=== PATIENT | female | born 2000 | race African-American/Black ===

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

== ENCOUNTER 2019-02-11 16:23 | Emergency (ER) | payer SELFPAY ==
[~2019-02-11] VITALS: Ht 157.5 cm; Wt 85.0 kg
[2019-02-11 16:31] VITALS: BP 119/76
--- NOTE | 2019-02-11 16:34 | NUR ---
TERRY PEARSON. TO LOBBY, MARIANGEL.
--- NOTE | 2019-02-11 17:28 | NUR ---
PT C/O ECZEMA BREAKOUT IN GROIN AREA AFTER USING TAMPON FOR 1ST TIME ON 01/27/19. AFTER BREAKOUT PT C/O WHITE VAGINA DISCHARGE W/ NO ODOR BEGINNING ON 01/29/19. PT USED ECZEMA CREAM AND IT SUBSIDED. PT THEN SHAVED GROIN, ABD, AND INNER THIGHS AND HAD ANOTHER BREAKOUT. PT DENIES PAIN AND ITCHING. RESPIRATIONS EVEN AND UNLABORED. ABD SOFT, ROUND, NON TENDER. PT IN BED ON PHONE, NO FURTHER COMPLAINTS. MEDHX: ECZEMA ALLERGIES: DENIES
--- NOTE | 2019-02-11 17:40 | NUR ---
ERMD AT BEDSIDE
[2019-02-11 18:05] VITALS: BP 119/76
--- NOTE | 2019-02-11 18:05 | NUR ---
Patient discharged with v/s stable. Written and verbal after care instructions given and explained. Patient alert, oriented and verbalized understanding of instructions. with steady gait. All questions addressed prior to discharge. ID band removed. Patient advised to follow up with PMD. Rx of FLUCONAZOLE, HYDROCORTISONE, KEFLEX given. Patient educated on indication of medication including possible reaction and side effects. Opportunity to ask questions provided and answered.
== END 2019-02-11 18:05 | disposition home or self-care (01) ==
LOC: MED 16:23
DX: L73.9 Follicular disorder, unspecified (principal); B37.3 Candidiasis of vulva and vagina; J45.909 Unspecified asthma, uncomplicated; Z90.89 Acquired absence of other organs; Z87.2 Personal history of diseases of the skin and subcutaneous tissue
CPT/HCPCS: 81002; 81025; 99283

== ENCOUNTER 2019-03-11 23:10 | Emergency (ER) | payer MEDICAID ==
[~2019-03-11] VITALS: Ht 157.5 cm; Wt 85.3 kg
[2019-03-11 23:20] VITALS: BP 138/95
--- NOTE | 2019-03-11 23:24 | NUR ---
PT TRIAGED, SENT BACK TO LOBBY AWAITING FOR BED
--- NOTE | 2019-03-11 23:52 | NUR ---
PT TAKEN TO BED 12
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
[2019-03-12] MEDS ORDERED: methylPREDNISolone SS 125 MG/2 ML VIAL IVP ONE (00:35)
[2019-03-12] MEDS ORDERED: FAMOTIDINE 20 MG/2 ML VIAL IVP ONE (00:35)
[2019-03-12] MEDS ORDERED: NACL 0.9% 1,000 ML IV ONE (00:35)
[2019-03-12 01:48] VITALS: BP 138/95
--- NOTE | 2019-03-12 01:49 | NUR ---
Patient discharged with v/s stable. Written and verbal after care instructions given and explained. Patient alert, oriented and verbalized understanding of instructions. Ambulatory with steady gait. All questions addressed prior to discharge. ID band removed. Patient advised to follow up with PMD. Rx of EPIPEN, PREDNISONE, PEPCID given. Patient educated on indication of medication including possible reaction and side effects. Opportunity to ask questions provided and answered.
--- NOTE | 2019-03-12 11:05 | NUR ---
Late entry. Confirmed with RN that 1000ml 0.9 NS IV completed at 1819
== END 2019-03-12 01:49 | disposition home or self-care (01) ==
LOC: MED 23:10
DX: T78.40XA Allergy, unspecified, initial encounter (principal); J45.909 Unspecified asthma, uncomplicated; Z98.890 Other specified postprocedural states; Z91.018 Allergy to other foods; Z91.010 Allergy to peanuts; Z91.048 Other nonmedicinal substance allergy status; X58.XXXA Exposure to other specified factors, initial encounter
CPT/HCPCS: 96374; 96375; 99283; J2930; J3490; J7030

== ENCOUNTER 2019-03-13 16:57 | Emergency (ER) | payer MEDICAID ==
[~2019-03-13] VITALS: Ht 157.5 cm; Wt 85.0 kg
[2019-03-13 17:01] VITALS: BP 123/50
[2019-03-13] MEDS ORDERED: DEXAMETHASONE 10 MG/ML VIAL IM ONE (17:25)
[2019-03-13] MEDS ORDERED: diphenhydrAMINE 50 MG/ML VIAL IM ONE (17:25)
[2019-03-13] MEDS ORDERED: ALBUTEROL 0.083% 2.5 MG/3 ML NEBU INH ONE (17:40)
[2019-03-13 18:35] VITALS: BP 119/71
== END 2019-03-13 18:36 | disposition home or self-care (01) ==
LOC: MED 16:57
DX: L50.0 Allergic urticaria (principal); J45.909 Unspecified asthma, uncomplicated; Z90.49 Acquired absence of other specified parts of digestive tract; Z91.018 Allergy to other foods
CPT/HCPCS: 94640; 96372; 99283; J1100; J1200; J7613

== ENCOUNTER 2019-05-20 16:25 | Emergency (ER) | payer MEDICAID, OTHER ==
[~2019-05-20] VITALS: Ht 157.5 cm; Wt 81.6 kg
[2019-05-20 16:28] VITALS: BP 126/70
--- NOTE | 2019-05-20 16:35 | NUR ---
PT AMBULATED TO ER BED 02
--- NOTE | 2019-05-20 16:40 | NUR ---
C/O NON-PRODUCTIVE COUGH, FEVER, SORE THROAT 8/10 X YESTERDAY. PT AFEBRILE AT THIS TIME. LUNGS CLEAR BILTERALLY. RR EVEN AND UNLABORED. REDNESS NOTED TO BACK OF PTS THROAT. PT ALERT AND AWAKE. VS STABLE. AMBULATORY WITH STEADY GAIT. MED HX: ECZEMA
[2019-05-20 16:50] VITALS: BP 126/70
--- NOTE | 2019-05-20 16:50 | NUR ---
Patient discharged with v/s stable. Written and verbal after care instructions given and explained REGARDING UPPER RESP INFECTION. Patient alert, oriented and verbalized understanding of instructions. Ambulatory with steady gait. All questions addressed prior to discharge. ID band removed. Patient advised to follow up with PMD. Rx of ROBITUSSIN FOR COUGH, AND IBUPROFEN AND TYLENOL given. INSTRUCTED TO ALTERNATE BETWEEN THE TWO FOR FEVER. Patient educated on indication of medication including possible reaction and side effects. Opportunity to ask questions provided and answered.
== END 2019-05-20 16:50 | disposition home or self-care (01) ==
LOC: MED 16:25
DX: J06.9 Acute upper respiratory infection, unspecified (principal); J45.909 Unspecified asthma, uncomplicated; Z91.018 Allergy to other foods; Z91.048 Other nonmedicinal substance allergy status; Z91.010 Allergy to peanuts
CPT/HCPCS: 99282

== ENCOUNTER 2020-01-26 20:27 | Emergency (ER) | payer OTHER ==
[~2020-01-26] VITALS: Ht 162.6 cm; Wt 98.0 kg
[2020-01-26 20:30] VITALS: BP 128/97
[2020-01-26] MEDS ORDERED: IBUPROFEN 400 MG TAB PO ONE (20:50)
[2020-01-26] MEDS ORDERED: ACETAMINOPHEN 325 MG TAB PO ONE (20:50)
[2020-01-26 21:50] VITALS: BP 128/97
== END 2020-01-26 21:50 | disposition home or self-care (01) ==
LOC: MED 20:27
DX: S93.505A Unspecified sprain of left lesser toe(s), initial encounter (principal); J45.909 Unspecified asthma, uncomplicated; Z91.02 Food additives allergy status; Z91.018 Allergy to other foods; Z91.010 Allergy to peanuts; X50.9XXA Other and unspecified overexertion or strenuous movements or postures, initial encounter; Y93.89 Activity, other specified; Y92.89 Other specified places as the place of occurrence of the external cause; Y99.8 Other external cause status
CPT/HCPCS: 73660; 99283; Q0092